=== PATIENT | female | born 1960 | race Two or more races ===

== ENCOUNTER 2020-08-02 07:29 | Day surgery (SDC) | payer OTHER | END 2020-08-02 12:05 | disposition home or self-care (01) | LOC: AMB-ENDOS 07:29 | PROVIDERS: ATTEND Surgery | DX: D12.0 Benign neoplasm of cecum (principal); K62.82 Dysplasia of anus; Z20.822 Contact with and (suspected) exposure to COVID-19 ==

== ENCOUNTER 2020-08-25 09:30 | Inpatient (IN) | payer OTHER ==
[~2020-08-25] VITALS: Ht 157.5 cm; Wt 76.2 kg
[2020-08-25] MEDS ORDERED: VALSARTAN-HCTZ1 EAC1 PO (11:43)
[2020-08-25] MEDS ORDERED: LEVO-T25 MCG PO (11:43)
[2020-08-25] MEDS ORDERED: LIPITOR20 MG PO (11:43)
[2020-08-25] MEDS ORDERED: CENTRUM ADULTS1 EACH PO (11:43)
[2020-08-31] MEDS ORDERED: PRAX237 ML (15:42)
[2020-09-05] MEDS ORDERED: PERCOCET 5-3251 EACH PO (12:22)
[2020-09-05] MEDS ORDERED: PRILOSEC OTC20 MG PO (12:22)
== END 2020-09-05 15:18 | disposition home or self-care (01) | DRG 331 ==
LOC: O/R 08-31 09:27 → SURH 08-31 09:30
PROVIDERS: ADMIT Surgery; ATTEND Surgery
PROC: 07BB4ZX Excision of Mesenteric Lymphatic, Percutaneous Endoscopic Approach, Diagnostic (ICD-10-PCS; 2020-08-31)
PROC: 3E0F7SF Introduction of Other Gas into Respiratory Tract, Via Natural or Artificial Opening (ICD-10-PCS; 2020-08-31)
PROC: 0DBH4ZZ Excision of Cecum, Percutaneous Endoscopic Approach (ICD-10-PCS; principal; 2020-08-31 13:45)
DX: K63.5 Polyp of colon (principal); R59.0 Localized enlarged lymph nodes; K59.09 Other constipation; I10 Essential (primary) hypertension